=== PATIENT | female | born 1965 | race Caucasian/White ===

== ENCOUNTER 2017-10-22 19:53 | Emergency (ER) | payer OTHER ==
[2017-10-22] MEDS: KETOROLAC 60 MG INJ IM (22:09)
[2017-10-22] MEDS: LORAZEPAM 1 MG TAB PO (22:09)
== END 2017-10-22 23:55 | disposition home or self-care (01) ==
LOC: FTE 23:55
DX: M54.2 Cervicalgia (principal); R07.9 Chest pain, unspecified; M79.652 Pain in left thigh; M25.552 Pain in left hip; F17.210 Nicotine dependence, cigarettes, uncomplicated
CPT/HCPCS: 71046; 72040; 73510; 73550; 81025; 93005; 96372; 99284-25